=== PATIENT | female | born 1970 | race Caucasian/White ===

== ENCOUNTER → 2017-04-29 | Outpatient (CLI) | payer OTHER ==
[~2017-04-29] MED LIST: ADVIL200 M3 PO; AMOXICILLIN PO; DIFLUCAN PO; ENTEX LA T1 TAB.SR . PO; GLUCOPHAGE500 M1 PO; HYDROCODON-ACE1 EAC7 PO; LORTAB 2.5/5001 TAB PO; LORTAB 7.51 TAB 7.5/ PO; LOTRIMIN30 GM TOP; MACROBID 100 M100 MG PO; MARIJUANA INH; MEDROL DOSEPAK4 MG PO; METFORMIN PO; NO MEDICATIONS; VALTREX PO; VITAMIN E100 UNI3 PO; ZANAFLEX2 M1 PO
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
== END | disposition home or self-care (01) ==
LOC: CRAD 12:38
DX: R07.89 Other chest pain (principal); M54.2 Cervicalgia; L30.9 Dermatitis, unspecified; M25.422 Effusion, left elbow; M25.512 Pain in left shoulder
CPT/HCPCS: 71020; 72040; 73030; 73070

== ENCOUNTER → 2017-06-01 | Outpatient (CLI) | payer OTHER ==
--- NOTE | ~2017-06-01 | MR32 ---
[facility] A Service of [facility] & [facility] RADIOLOGY TEXT RESULTS PATIENT: EFRAIN CONDON LOCATION: [facility] : 66 UNIT #: [id number] AGE: [address]: Patrica Stafford MD SEX: F ORDER DR: [id number] [facility] [address] [address]. [place], [place] [address] [id number] O MR#: [id number] Acc #: [id number] NAME: EFRAIN CONDON : 1970 SEX: F STUDY DATE/TIME: 06/01/2017 8:33 UNIT: [facility] ROOM: STUDY DESCRIPTION: MR Cervical Wo Contrast Attending Physician: Patrica Stafford M.D. Referring Physician: Patrica Stafford M.D. Ordering Physician: Patrica Stafford M.D. Primary Care Physician: Patrica Stafford M.D. MRI CENTER REPORT This report is preliminary unless electronic signature is present. EXAM MRI of the cervical spine without contrast, dated 06/01/2017. COMPARISON Plain film cervical spine dated 04/29/2015. HISTORY Sleep apnea. Neck pain and left arm pain with tingling also, chronic. FINDINGS Multisequence, multiplanar imaging of the cervical spine was obtained without contrast. Vertebral body heights and alignment are preserved. Degenerative disc disease is at multiple levels, relatively worse at C6-7. Cord demonstrates normal expected course, caliber and signal. Pre and paravertebral soft tissues do not demonstrate any significant abnormality. C2-3: Tiny right central protrusion. No canal stenosis or neural foraminal narrowing. C3-4, C4-5: Mild degenerative disc signal loss but otherwise unremarkable. C5-6: Disc osteophyte complex with mild bilateral neural foraminal encroachment without significant nerve impingement. No canal stenosis. C6-7: Concentric disc bulge with superimposed left subarticular to foraminal broad-based protrusion. Mild left neural foraminal encroachment. C7-T1: Mild degenerative disc signal loss but otherwise unremarkable. IMPRESSION 1. Mild degenerative changes are noted in the cervical spine, relatively worse at C6-7 followed by C5-6. 2. No cord abnormality. [facility] A Service of [facility] & [facility] RADIOLOGY TEXT RESULTS PATIENT: EFRAIN CONDON [facility] [id number] : [birth year] UNIT #: [id number] AGE: [address]: Patrica Stafford MD SEX: F ORDER DR: Dictated by... Kaylene Anthony M.D. THIS IS AN ELECTRONICALLY VERIFIED REPORT Kaylene Anthony M.D. at 06/06/2017 11:32 AM CPR/jt TD: 06/01/2017 19:05 JOB #: [id number] MRI CENTER REPORT Page 1 of 1 COPY
--- NOTE | ~2017-06-01 | MY29 ---
[facility] A Service of [facility] RADIOLOGY TEXT RESULTS PATIENT: EFRAIN CONDON LOCATION: [facility] : 66 UNIT #: [id number] AGE: [address]: Patrica Stafford MD SEX: F ORDER DR: [id number] [facility] [address]. [place], [place] [address] [id number] O MR#: [id number] Acc #: [id number] NAME: EFRAIN CONDON : 1970 SEX: F STUDY DATE/TIME: 06/01/2017 9:48 UNIT: [facility] ROOM: STUDY DESCRIPTION: MY SELENA SCREENING W/ CAD BILAT Attending Physician: Patrica Stafford M.D. Referring Physician: Patrica Stafford M.D. Ordering Physician: Patrica Stafford M.D. Primary Care Physician: Patrica Stafford M.D. MEDICAL IMAGING REPORT This report is preliminary unless electronic signature is present EXAM Digital screening mammogram 06/01/2017 HISTORY 46-year-old woman prior reduction mammoplasties. No risk elevation. Annual screen. COMPARISON Mammograms date to 01/31/2008 with most recent 09/21/2015. FINDINGS Digital imaging of each breast was completed utilizing a two-view examination of each breast in craniocaudal and mediolateral-oblique projections. Review and interpretation of digital mammograms include a second review in conjunction with FDA-approved CAD device. There is a normal parenchymal presentation bilaterally consistent with the patient's age. There are no breast masses imaged and no parenchymal asymmetry is visualized. There are no suspicious microcalcifications and I see no focal architectural disturbance. IMPRESSION Negative screening digital mammogram. One-year followup recommended. ADDENDUM Breast parenchyma is fatty replaced. Patients over the age of 40 are entered into a reminder system with target due date for the next mammogram. A result letter will also be sent to the patient. BIRADS: 1 Negative [facility] A Service [facility] RADIOLOGY TEXT RESULTS PATIENT: EFRAIN CONDON LOCATION: [facility] : 66 UNIT #: [id number] AGE: [address]: Patrica Stafford MD SEX: F ORDER DR: Dictated by... Paul Batista M.D. THIS IS AN ELECTRONICALLY VERIFIED REPORT Paul Batista M.D. at 06/01/2017 3:01 PM KEHINDE/arminda TD: 06/01/2017 14:23 JOB #: [id number] MEDICAL IMAGING REPORT Page 1 of 1 COPY
== END | disposition home or self-care (01) ==
LOC: CWCC 05-31 07:45
DX: Z12.31 Encounter for screening mammogram for malignant neoplasm of breast (principal); M54.2 Cervicalgia; M47.892 Other spondylosis, cervical region
CPT/HCPCS: 72141; G0202